=== PATIENT | female | born 1975 | race Caucasian/White ===

== ENCOUNTER 2024-08-31 07:39 | Day surgery (SDC) | payer OTHER ==
[2024-08-31 08:28] LABS: #Basophils 0.03 10x3/uL (0.0-0.2); %Basophils 0.2 % (0.0-1.0); %Eosinophils 0.5 % (0.0-10.0); %Monocytes 6.4 % (0.0-10.0); %Neutrophils 75.5 % (42.0-75.0); Hemoglobin 13.5 g/dL (12.0-16.0); Mean Corpuscular HGB CONC 33.8 g/dL (32.0-36.0); Mean Corpuscular Hemoglobin 29.2 pg (27.0-31.0); Mean Corpuscular Volume 86.6 fL (78.0-98.0); Mean Platelet Volume 10.7 fL (7.4-10.4); Platelet Count 256 10x3/uL (130-400); RBC Distribution Width 13.4 % (11.5-14.5); Red Blood Cell (RBC) Count 4.62 mill/uL (4.20-5.40)
[2024-08-31] MEDS ORDERED: Piperacillin/Tazobactam 3.375 GM VIAL ONE (08:37)
[2024-08-31] MEDS ORDERED: Sodium Chloride 0.9% 100 ML ONE (08:37)
[2024-08-31 08:41] LABS: ALT (SGPT) 18 U/L (8-55); AST (SGOT) 35 U/L (5-34); Albumin 3.9 g/dL (3.5-5.0); Alkaline Phosphatase 74 U/L (40-110); Anion Gap 14 mmol/L (10-20); BUN (Urea Nitrogen) 15 mg/dL (7.0-18.7); Bilirubin, Total 0.5 mg/dL (0.2-1.2); Calc. Creatinine Clearance 0 mL/min (70-130); Calcium 9.1 mg/dL (7.8-10.44); Carbon Dioxide 23 mmol/L (22-29); Chloride 106 mmol/L (98-107); Estimated GFR 69; Globulin 3.7 g/dL (2.4-3.5); Glucose 105 mg/dL (70-105); Potassium 4.1 mmol/L (3.5-5.1); Protein, Total 7.6 g/dL (6.0-8.3); Sodium 139 mmol/L (136-145)
[2024-08-31] MEDS ORDERED: Bupivacaine PF 0.5% 30 ML VIAL ONE (08:45)
[2024-08-31] MEDS ORDERED: EPINEPHrine 1 MG/ML VIAL ONE (08:45)
[2024-08-31] MEDS ORDERED: Glucagon 1 MG/ML KIT ONE (08:45)
[2024-08-31] MEDS ORDERED: Rocuronium Bromide 10 MG/ML (10ML VIAL) ONE (08:57)
[2024-08-31] MEDS ORDERED: Ondansetron PF 4 MG/2 ML Vial ONE (08:57)
[2024-08-31] MEDS ORDERED: SUCCINYLCHOLINE/SOD CL,ISO/PF 200 MG/10 ML SYRINGE FS ONE (08:57)
[2024-08-31] MEDS ORDERED: Dexamethasone 4 mg/ml Vial ONE (08:57)
[2024-08-31] MEDS ORDERED: fentaNYL PF 100 MCG/2 ML SYRINGE ONE (08:57)
[2024-08-31] MEDS ORDERED: Lidocaine 2% PF 5 ML VIAL ONE (08:57)
[2024-08-31] MEDS ORDERED: Midazolam HCl 2 mg/2 ml Vial ONE (08:58)
[2024-08-31] MEDS ORDERED: PROPOFOL 20 ML ONE (08:58)
[2024-08-31] MEDS ORDERED: Lidocaine 2% 6 ML (Jelly) SYR ONE (08:59)
[2024-08-31] MEDS ORDERED: Ketorolac Tromethamine 30 MG (1 mL) VIAL ONE (09:00)
[2024-08-31] MEDS ORDERED: SUGAMMADEX SODIUM 200 MG/2 ML VIAL ONE (09:03)
[2024-08-31] MEDS ORDERED: Glycopyrrolate 0.2 MG/ML 5 ML SYRINGE ONE (10:44)
[2024-08-31] MEDS ORDERED: PHENYLEPHRINE-NS 100 MCG/ML 10 ML SYRINGE ONE (10:44)
[2024-08-31] MEDS ORDERED: fentaNYL 50 mcg/mL 1 mL Vial ONE (11:15)
== END 2024-08-31 13:48 | disposition home or self-care (01) ==
LOC: ERS 07:39 → SDC 10:14
PROVIDERS: ATTEND Specialist
PROC: 0FT44ZZ Resection of Gallbladder, Percutaneous Endoscopic Approach (ICD-10-PCS; principal; 2024-08-31)
DX: K80.00 Calculus of gallbladder with acute cholecystitis without obstruction (principal); K21.9 Gastro-esophageal reflux disease without esophagitis; F41.9 Anxiety disorder, unspecified; F32.A Depression, unspecified; M19.90 Unspecified osteoarthritis, unspecified site; Z90.710 Acquired absence of both cervix and uterus; Z79.899 Other long term (current) drug therapy
CPT/HCPCS: 36415; 76705; 80053; 85025; 87040; 88304; C1889; J0171; J0665; J1100; J1611; J1885; J2250; J2405; J2543; J2704; J3010